=== PATIENT | female | born 1960 | race Caucasian/White ===

== ENCOUNTER 2021-10-31 08:03 | Day surgery (SDC) | payer OTHER ==
[2013-07-08 16:34] VITALS: BP 118/63
[2021-10-31] MEDS ORDERED: Sodium Chloride 0.9% 10 ML FLUSH Syringe IJ ONE (08:04)
[2021-10-31] MEDS ORDERED: Depo-Medrol 40 MG/ML IM ONE (08:04)
[2021-10-31] MEDS ORDERED: DIPRIVAN 200 MG/20 ML IV ONE (09:35)
[2021-10-31] MEDS ORDERED: Lactated Ringers 1,000 ML IV ONE (10:14)
--- NOTE | 2021-10-31 11:49 | XRAY ---
Indication: Right L4-S1 transforaminal GOLD. Intraoperative fluoroscopy was provided for 42 seconds. 4 digital spot image submitted for interpretation demonstrates posterior needle tips projecting over the expected right L4 and L5 nerve roots. Small amount of contrast injected for needle tip placement. Correlate with intraoperative findings/report.
--- NOTE | 2021-10-31 12:38 | XRAY ---
42 seconds of fluoroscopy was used in surgery for a right L4-S1 transforaminal GOLD.
== END 2021-10-31 10:00 | disposition home or self-care (01) ==
LOC: SDC-PAIN 08:03
PROVIDERS: ATTEND Psychiatry & Neurology Pain Medicine
DX: M54.16 Radiculopathy, lumbar region (principal); E11.9 Type 2 diabetes mellitus without complications; I10 Essential (primary) hypertension; Z79.899 Other long term (current) drug therapy
CPT/HCPCS: 64483; 64484; 72100; 77003; 82947; J1030; J2704; Q9966

== ENCOUNTER 2022-11-27 14:19 | Emergency (ER) | payer OTHER ==
[2022-11-27] MEDS ORDERED: Sodium Chloride 0.9% 1000 ML 1,000 ML IV STA (14:43)
[2022-11-27 15:00] LABS: Absolute Neutrophil Ct (ANC) 4.18 x10^3/uL (1.4-6.9); Basophil (Absolute #) 0.06 x10^3/uL (0-0.4); Eosinophil (Absolute #) 0.12 x10^3/uL (0-0.5); Hematocrit 30.6 % (35-47); Hemoglobin 9.4 g/dL (12.0-16.0); IMMATURE GRAN # 0.01 x10^3u/L (0.00-0.03); IMMATURE GRAN % 0.2 % (0.00-0.4); Lymphocytes % 19.8 % (24.0-44.0); Mean Cell Volume 82.7 fL (78-100); Mean Corpuscular Hemoglobin 25.4 pg (26-32); Mean Corpuscular Hgb Concent. 30.7 g/dL (32-36); Mean Platelet Volume 11.7 fL (7.5-11.0); Monocyte (Absolute #) 0.49 x10^3/uL (0.0-1.3); Monocytes % 8.1 % (0.0-12.0); Neutrophil % 68.9 % (36.0-66.0); Platelet Count 194 x10^3/uL (150-450); Red Cell Distribution Width 16.1 % (11.5-14.0); White Blood Count 6.1 x10^3/uL (4.0-10.5)
[2022-11-27] MEDS ORDERED: Sodium Chloride 0.9% 1000 ML 1,000 ML ONE (15:15)
--- NOTE | 2022-11-27 15:18 | XRAY ---
Indication: High blood sugar. Comparison: None PA/lateral chest inflated and clear with a few incidental tiny calcified granulomas. Heart not enlarged with tortuous descending aorta. Bony thorax intact with osteopenia and mild degenerative changes. Impression: Nonacute chest with chronic features.
[2022-11-27 15:29] LABS: ALBUMIN 3.9 g/dL (3.5-5.0); ALKALINE PHOSPHATASE 157 U/L (38-126); ANION GAP 12.4 MEQ/L (5-15); BLOOD UREA NITROGEN 14 mg/dL (7-17); CHLORIDE 111 mmol/L (98-107); Calcium 9.5 mg/dL (8.4-10.2); Carbon Dioxide 20 mmol/L (22-30); Creatinine 1 0.56 mg/dL (0.52-1.04); EST GLOMERULAR FILTRATION RATE > 60.0 ML/MIN; Glucose 94 mg/dL (74-106); Potassium 3.1 mmol/L (3.5-5.1); SGOT/AST 20 U/L (14-36); SGPT/ALT 17 U/L (0-35); SODIUM 140 mmol/L (137-145); Total Protein 6.8 g/dL (6.3-8.2)
--- NOTE | 2022-11-27 15:47 | ERPHSYRPT ---
- History of Present Illness Time Seen by Provider: 11/27/22 14:24 Source: patient Exam Limitations: no limitations Patient Subjective Stated Complaint: Pt reports "around noon I got a headache and a little blurry vision so I checked my sugar and it was 478. I haven't eaten anything to cause it to go up and usually my sugar is low. When I checked my sugar around 1:30 is was 210. My sugar is never this high and I don't feel good." Triage Nursing Assessment: Pt alert and oriented x3. No apparent respiratory distress. Ambulated to ED cot without difficulty. Skin w/p/d. Blood sugar on glucometer is 90. Physician History: Patient is here for fluctuating blood sugars. Patient was asymptomatic and checked her blood sugar at work. States it was high. Then low. Patient states her blood blood sugar went from 400-70 to 200-4 100-200. Therefore it was quite the range. States that she checked it on her home meter. Patient is not diabetic. She has no falls or other trauma. No fever, chills. States that maybe she felt slightly "off, dizzy". However no chest pain, shortness of breath. 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 Timing/Duration: today Severity: mild Modifying Factors: Improves With: other Associated Symptoms: denies symptoms Allergies/Adverse Reactions: No Known Drug Allergies Allergy (Verified 11/27/22 14:27) Home Medications: Furosemide 40 mg [Lasix 40 MG] 40 mg PO DAILY 07/08/13 [History] Isosorbide Mononitrate [Imdur] 60 mg PO DAILY 07/08/13 [History] Lisinopril 5 mg [Zestril 5 MG] 5 mg PO DAILY 07/08/13 [History] Omeprazole 20 MG [Prilosec 20 mg] 20 mg PO DAILY 07/08/13 [History] Potassium Chloride Tab* [Klor Con 10 MEQ] 10 meq PO DAILY 07/08/13 [History] Ropinirole HCl [Requip] 1 mg PO TID 07/08/13 [History] Albuterol 8 gm Mdi Hfa [Ventolin Hfa MDI] 2 puff IH Q4H 01/01/17 [History] Aripiprazole 10 mg [Abilify 10 MG] 10 mg PO DAILY 01/01/17 [History] Calcium Carbonate [Calcium] 1,200 mg PO DAILY 01/01/17 [History] Cholecalciferol (Vitamin D3) [Vitamin D3] 10,000 unit PO DAILY 01/01/17 [History] Citalopram Hydrobromide [Celexa] 40 mg PO DAILY 01/01/17 [History] Cyanocobalamin (Vitamin B-12) [Vitamin B-12] 1,000 mcg PO .MONTHLY 01/01/17 [History] Cyclobenzaprine HCl 10 mg [Cyclobenzaprine 10 MG] 10 mg PO Q8HPRN PRN 01/01/17 [History] Docusate Sodium 100 mg [Colace 100 MG] 100 mg PO BID 01/01/17 [History] Gabapentin [Neurontin] 300 mg PO TID 01/01/17 [History] Hydrocodone/APAP 10/325 mg [[place] 10/325 MG Tablet] 1 tab PO Q4H PRN PRN 01/01/17 [History] Levothyroxine Sodium 50 Mcg [Synthroid 50 Mcg] 50 mcg PO DAILY 01/01/17 [H istory] Levothyroxine Sodium [Synthroid] 200 mcg PO DAILY 01/01/17 [History] Multivit with Iron,Minerals [Flintstones Complete] 3 each PO TID 01/01/17 [History] SUMAtriptan succinate [Imitrex] 100 mg PO .PRN 01/01/17 [History] Topiramate 50 mg PO DAILY 01/01/17 [History] Topiramate 100 mg [Topamax 100 MG] 100 mg PO HS 01/01/17 [History] Liraglutide [Victoza 2-Omar] 1.8 mg SQ DAILY 11/27/22 [History] Hx Tetanus, Diphtheria Vaccination/Date Given: Yes (2014) Hx Influenza Vaccination/Date Given: Yes (2021) Hx Pneumococcal Vaccination/Date Given: Yes Travel Risk - International Travel Have you traveled outside of the country in past 3 weeks: No - Coronavirus Screening Are you exhibiting any of the following symptoms?: No Close contact with a COVID-19 positive Pt in past 14-21 Days: No - Vaccine Status Have you recieved a Covid-19 vaccination: Yes [employer]: Moderna - Vaccination Dates Date of 2cond Vaccination (if applicable): n/a - Review of Systems Constitutional: No Fever, No Chills Eyes: No Symptoms Ears, Nose, & Throat: No Symptoms Respiratory: No Cough, No Dyspnea Cardiac: No Chest Pain, No Edema, No Syncope Abdominal/Gastrointestinal: No Abdominal Pain, No Nausea, No Vomiting, No Diarrhea Genitourinary Symptoms: No Dysuria Musculoskeletal: No Back Pain, No Neck Pain Skin: No Rash Neurological: No Dizziness, No Focal Weakness, No Sensory Changes Psychological: No Symptoms Endocrine: No Symptoms All Other Systems: Reviewed and Negative - Past Medical History Pertinent Past Medical History: Yes Neurological History: Peripheral Neuropathy Cardiac History: Aneurysm Respiratory History: Asthma Endocrine Medical History: Diabetes Type II Musculoskeletal History: Arthritis GI Medical History: GERD Other Medical History: Bariatric surgery 2010 - Past Surgical History Past Surgical History: Yes Gastrointestinal: Other Musculoskeletal: Orthopedic Surgery Other Surgical History: BARIATRIC, FX WRIST, T&A - Social History Smoking Status: Never smoker Exposure to second hand smoke: Yes Drug Use: none Patient Lives Alone: Yes - Nursing Vital Signs Nursing Vital Signs: Initial Vital Signs Temperature 97.9 F 11/27/22 14:28 Pulse Rate 77 11/27/22 14:28 Respiratory Rate 28 H 11/27/22 14:28 Blood Pressure 171/79 11/27/22 14:28 O2 Sat by Pulse Oximetry 100 11/27/22 14:28 Pain Scale Pain Intensity 0 - Physical Exam General Appearance: no apparent distress, alert Eye Exam: PERRL/EOMI, eyes nml inspection Ears, Nose, Throat Exam: normal ENT inspection, TMs normal, pharynx normal, moist mucous membranes Neck Exam: normal inspection, non-tender, supple, full range of motion Respiratory Exam: normal breath sounds, lungs clear, No respiratory distress Cardiovascular Exam: regular rate/rhythm, normal heart sounds, normal peripheral pulses Gastrointestinal/Abdomen Exam: soft, normal bowel sounds, No tenderness, No mass Back Exam: normal inspection, normal range of motion, No CVA tenderness, No vertebral tenderness Extremity Exam: normal inspection, normal range of motion, pelvis stable Neurologic Exam: alert, oriented x 3, cooperative, normal mood/affect, nml cerebellar function, nml station & gait, sensation nml, No motor deficits Skin Exam: normal color, warm, dry, No rash Lymphatic Exam: No adenopathy SpO2: 98 - Course Nursing assessment & vital signs reviewed: Yes EKG Interpreted by Me: Sinus Rhythm Ordered Tests: Active Orders 24 hr Category Date Time Status EKG-ER Only STAT Care 11/27/22 14:43 Active IV Insertion STAT Care 11/27/22 14:43 Active CHEST 2 VIEWS (PA AND LAT) Stat Exams 11/27/22 15:10 Completed CBC W DIFF Stat Lab 11/27/22 14:50 Completed CMP Stat Lab 11/27/22 14:50 Completed POCT GLUCOSE Stat Lab 11/27/22 14:37 Completed TROPONIN Q4H Lab 11/27/22 14:50 Completed TROPONIN Q4H Lab 11/27/22 18:45 Ordered TROPONIN Q4H Lab 11/27/22 22:45 Ordered Medication Summary Discontinued Medications Generic Name Dose Route Start Last Admin Trade Name Freq PRN Reason Stop Dose Admin Sodium Chloride 1,000 mls @ 999 mls/hr 11/27/22 14:43 11/27/22 15:16 Sodium Chloride 0.9% 1000 Ml IV 11/27/22 15:43 999 mls/hr .Q1H1M STA Administration Sodium Chloride Confirm 11/27/22 15:15 Sodium Chloride 0.9% 1000 Ml Administered 11/27/22 15:16 Dose 1,000 mls @ ud .ROUTE .STK-MED ONE Lab/Rad Data: Laboratory Result Diagrams 11/27/22 14:50 11/27/22 14:50 Laboratory Results 11/27/22 11/27/22 11/27/22 Range/Units 14:50 14:50 14:50 WBC (4.0-10.5) x10^3/uL RBC (4.1-5.4) x10^6/uL Hgb (12.0-16.0) g/dL Hct (35-47) % MCV (78-100) fL MCH (26-32) pg MCHC (32-36) g/dL RDW (11.5-14.0) % Plt Count (150-450) x10^3/uL MPV (7.5-11.0) fL Gran % (36.0-66.0) % Immature Gran % (Auto) (0.00-0.4) % Nucleat RBC Rel Count (0.00-0.1) % Eos # (Auto) (0-0.5) x10^3/uL Immature Gran # (Auto) (0.00-0.03) x10^3u/L Absolute Lymphs (auto) (1.0-4.6) x10^3/uL Absolute Monos (auto) (0.0-1.3) x10^3/uL Absolute Nucleated RBC (0.00-0.01) x10^3u/L Lymphocytes % (24.0-44.0) % Monocytes % (0.0-12.0) % Eosinophils % (0.00-5.0) % Basophils % (0.0-0.4) % Absolute Granulocytes (1.4-6.9) x10^3/uL Basophils # (0-0.4) x10^3/uL Sodium 140 (137-145) mmol/L Potassium 3.1 L (3.5-5.1) mmol/L Chloride 111 H (98-107) mmol/L Carbon Dioxide 20 L (22-30) mmol/L Anion Gap 12.4 (5-15) MEQ/L BUN 14 (7-17) mg/dL Creatinine 0.56 (0.52-1.04) mg/dL Estimated GFR > 60.0 ML/MIN Glucose 94 (74-106) mg/dL POC Glucometer (74 to 106) mg/dL Hemoglobin A1c 5.28 (4.5-6.0) % Calcium 9.5 (8.4-10.2) mg/dL Total Bilirubin 0.60 (0.2-1.3) mg/dL AST 20 (14-36) U/L ALT 17 (0-35) U/L Alkaline Phosphatase 157 H (38-126) U/L Troponin I 0.012 (0.000-0.034) ng/mL Serum Total Protein 6.8 (6.3-8.2) g/dL Albumin 3.9 (3.5-5.0) g/dL 11/27/22 11/27/22 Range/Units 14:50 14:37 WBC 6.1 (4.0-10.5) x10^3/uL RBC 3.70 L (4.1-5.4) x10^6/uL Hgb 9.4 L (12.0-16.0) g/dL Hct 30.6 L (35-47) % MCV 82.7 (78-100) fL MCH 25.4 L (26-32) pg MCHC 30.7 L (32-36) g/dL RDW 16.1 H (11.5-14.0) % Plt Count 194 (150-450) x10^3/uL MPV 11.7 H (7.5-11.0) fL Gran % 68.9 H (36.0-66.0) % Immature Gran % (Auto) 0.2 (0.00-0.4) % Nucleat RBC Rel Count 0.0 (0.00-0.1) % Eos # (Auto) 0.12 (0-0.5) x10^3/uL Immature Gran # (Auto) 0.01 (0.00-0.03) x10^3u/L Absolute Lymphs (auto) 1.20 (1.0-4.6) x10^3/uL Absolute Monos (auto) 0.49 (0.0-1.3) x10^3/uL Absolute Nucleated RBC 0.00 (0.00-0.01) x10^3u/L Lymphocytes % 19.8 L (24.0-44.0) % Monocytes % 8.1 (0.0-12.0) % Eosinophils % 2.0 (0.00-5.0) % Basophils % 1.0 (0.0-0.4) % Absolute Granulocytes 4.18 (1.4-6.9) x10^3/uL Basophils # 0.06 (0-0.4) x10^3/uL Sodium (137-145) mmol/L Potassium (3.5-5.1) mmol/L Chloride (98-107) mmol/L Carbon Dioxide (22-30) mmol/L Anion Gap (5-15) MEQ/L BUN (7-17) mg/dL Creatinine (0.52-1.04) mg/dL Estimated GFR ML/MIN Glucose (74-106) mg/dL POC Glucometer 90 (74 to 106) mg/dL Hemoglobin A1c (4.5-6.0) % Calcium (8.4-10.2) mg/dL Total Bilirubin (0.2-1.3) mg/dL AST (14-36) U/L ALT (0-35) U/L Alkaline Phosphatase (38-126) U/L Troponin I (0.000-0.034) ng/mL Serum Total Protein (6.3-8.2) g/dL Albumin (3.5-5.0) g/dL - Progress Progress: unchanged Progress Note: 11/27/22 16:21 differential diagnosis includes: PNA, STEMI, NSTEMI, other infection, musculoskeletal pain, pneumothorax - We/ll obtain basic labs, fluids, EKG, troponin, chest x-ray - I feel comfortable with one time negative troponin given symptoms have improved and started greater then 6 hours ago. - EKG shows no ST changes - my read. See full read below. - O2 saturations consistently greater than 95%. - CXR shows no pneumonia, pneumothorax - my read - no other obvious lab abnormalities Normal hemoglobin A1c. Normal blood sugar here. Therefore much less likely to be is a diabetic. Patient remained asymptomatic. Plan for discharge home. Close follow-up with PCP. Return here for new or changing symptoms. Counseled pt/family regarding: lab results, diagnosis, need for follow-up, rad results - Departure Departure Disposition: Home Clinical Impression: Normal blood sugar Condition: Stable Critical Care Time: No Referrals: RICARDA MIGUEL NP [Primary Care Provider] - Follow up/PCP as directed Instructions: High Blood Sugar, Adult (DC)
[2022-11-27 16:37] VITALS: BP 138/70; PULSE 68; O2SAT 99
== END 2022-11-27 16:43 | disposition home or self-care (01) ==
LOC: ED 14:19
DX: E11.9 Type 2 diabetes mellitus without complications (principal); Z79.891 Long term (current) use of opiate analgesic; Z79.85 Long-term (current) use of injectable non-insulin antidiabetic drugs; Z79.899 Other long term (current) drug therapy
CPT/HCPCS: 36000; 36415; 71046; 80053; 82947; 83036; 84484; 85025; 93005; 96360; 99284

== ENCOUNTER 2023-06-04 08:15 | Emergency (ER) | payer OTHER ==
--- NOTE | 2023-06-04 08:21 | ERPHSYRPT ---
- History of Present Illness Time Seen by Provider: 06/04/23 08:21 Historian: patient Exam Limitations: no limitations Physician History: This is an obese 62-year-old white female patient of nurse practitioner Praveen who saw her pain specialist on 06/03/2023 (Dr. Palma) and had an injection into her knee for chronic knee pain. Patient has had a bariatric surgery (Rou x-en-Y) in 2010. She has had a total abdominal hysterectomy. Her appendix is still in place. She has never had ureteral lithiasis. Today, while at work she had sudden onset of sharp stabbing pain primarily right side of her abdomen. She has never had a pain like this before. The pain doubled her over. Patient denies chest pain. She denies shortness of breath. Patient denies vomiting or diarrhea. Patient has a history of hypertension, gastroesophageal reflux disease, hypothyroidism, migraine headache, diabetes, peripheral neuropathy and arthritis. Timing/Duration: today Activities at Onset: none Quality: sharpness, stabbing Abdominal Pain Onset Location: RLQ, periumbilical Severity of Pain-Max: moderate Severity of Pain-Current: moderate Modifying Factors: Improves With: nothing Associated Symptoms: denies symptoms Previous symptoms: no prior history Allergies/Adverse Reactions: No Known Drug Allergies Allergy (Verified 11/27/22 14:27) Home Medications: Furosemide 40 mg [Lasix 40 MG] 40 mg PO DAILY 07/08/13 [History] Isosorbide Mononitrate [Imdur] 60 mg PO DAILY 07/08/13 [History] Lisinopril 5 mg [Zestril 5 MG] 5 mg PO DAILY 07/08/13 [History] Omeprazole 20 MG [Prilosec 20 mg] 20 mg PO DAILY 07/08/13 [History] Potassium Chloride Tab* [Klor Con 10 MEQ] 10 meq PO DAILY 07/08/13 [History] Ropinirole HCl [Requip] 1 mg PO TID 07/08/13 [History] Albuterol 8 gm Mdi Hfa [Ventolin Hfa MDI] 2 puff IH Q4H 01/01/17 [History] Aripiprazole 10 mg [Abilify 10 MG] 10 mg PO DAILY 01/01/17 [History] Calcium Carbonate [Calcium] 1,200 mg PO DAILY 01/01/17 [History] Cholecalciferol (Vitamin D3) [Vitamin D3] 10,000 unit PO DAILY 01/01/17 [History] Citalopram Hydrobromide [Celexa] 40 mg PO DAILY 01/01/17 [History] Cyanocobalamin (Vitamin B-12) [Vitamin B-12] 1,000 mcg PO .MONTHLY 01/01/17 [History] Cyclobenzaprine HCl 10 mg [Cyclobenzaprine 10 MG] 10 mg PO Q8HPRN PRN 01/01/17 [History] Docusate Sodium 100 mg [Colace 100 MG] 100 mg PO BID 01/01/17 [History] Gabapentin [Neurontin] 300 mg PO TID 01/01/17 [History] Hydrocodone/APAP 10/325 mg [[place] 10/325 MG Tablet] 1 tab PO Q4H PRN PRN 01/01/17 [History] Levothyroxine Sodium 50 Mcg [Synthroid 50 Mcg] 50 mcg PO DAILY 01/01/17 [History] Levothyroxine Sodium [Synthroid] 200 mcg PO DAILY 01/01/17 [History] Multivit with Iron,Minerals [Flintstones Complete] 3 each PO TID 01/01/17 [History] SUMAtriptan succinate [Imitrex] 100 mg PO .PRN 01/01/17 [History] Topiramate 50 mg PO DAILY 01/01/17 [History] Topiramate 100 mg [Topamax 100 MG] 100 mg PO HS 01/01/17 [History] Liraglutide [Victoza 2-Omar] 1.8 mg SQ DAILY 11/27/22 [History] Hx Tetanus, Diphtheria Vaccination/Date Given: Yes (2014) Hx Influenza Vaccination/Date Given: Yes (2021) Hx Pneumococcal Vaccination/Date Given: Yes Travel Risk - International Travel Have you traveled outside of the country in past 3 weeks: No - Coronavirus Screening Are you exhibiting any of the following symptoms?: No Close contact with a COVID-19 positive Pt in past 14-21 Days: No - Vaccine Status Have you recieved a Covid-19 vaccination: Yes 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: 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 - Vaccination Dates Date of 2cond Vaccination (if applicable): n/a - Review of Systems Constitutional: No Symptoms Eyes: No Symptoms Ears, Nose, & Throat: No Symptoms Respiratory: No Symptoms Cardiac: No Symptoms Abdominal/Gastrointestinal: Abdominal Pain Genitourinary Symptoms: No Symptoms Musculoskeletal: No Symptoms Skin: No Symptoms Neurological: No Symptoms Psychological: No Symptoms Endocrine: No Symptoms Hematologic/Lymphatic: No Symptoms Immunological/Allergic: No Symptoms All Other Systems: Reviewed and Negative - Past Medical History Pertinent Past Medical History: Yes Neurological History: Peripheral Neuropathy Cardiac History: Aneurysm Respiratory History: Asthma Endocrine Medical History: Diabetes Type II Musculoskeletal History: Arthritis GI Medical History: GERD Other Medical History: Bariatric surgery 2010 - Past Surgical History Past Surgical History: Yes Gastrointestinal: Other Musculoskeletal: Orthopedic Surgery Other Surgical History: BARIATRIC, FX WRIST, T&A - Social History Smoking Status: Never smoker Exposure to second hand smoke: Yes Drug Use: none Patient Lives Alone: Yes - Nursing Vital Signs Nursing Vital Signs: Initial Vital Signs Temperature 98.8 F 06/04/23 08:27 Pulse Rate 60 06/04/23 08:27 Respiratory Rate 24 06/04/23 08:27 Blood Pressure 222/96 06/04/23 08:27 O2 Sat by Pulse Oximetry 99 06/04/23 08:27 Pain Scale Pain Intensity 6 - Physical Exam General Appearance: mild distress, alert, anxiety, obese Eye Exam: PERRL/EOMI, eyes nml inspection Ears, Nose, Throat Exam: normal ENT inspection, moist mucous membranes Neck Exam: normal inspection, non-tender, supple, full range of motion Respiratory Exam: normal breath sounds, lungs clear, airway intact, No chest tenderness, No respiratory distress Cardiovascular Exam: regular rate/rhythm, normal heart sounds, normal peripheral pulses Gastrointestinal/Abdomen Exam: soft, normal bowel sounds, tenderness (Perium bilical and right lower quadrant), guarding (To palpation right lower quadrant and periumbilical region), No pulsatile mass Pelvic Exam: not done Rectal Exam: not done Back Exam: normal inspection, normal range of motion, No CVA tenderness, No vertebral tenderness Extremity Exam: normal inspection, normal range of motion, pelvis stable Neurologic Exam: alert, oriented x 3, cooperative, orthodontic lab technician II-XII nml as tested, normal mood/affect, nml cerebellar function, nml station & gait, sensation nml Skin Exam: normal color, warm, dry Lymphatic Exam: No adenopathy SpO2 Interpretation: normal O2 Delivery: Room Air - Course Nursing assessment & vital signs reviewed: Yes Ordered Tests: Active Orders 24 hr Category Date Time Status IV Insertion STAT Care 06/04/23 08:43 Active Telemetry q4h Care 06/04/23 09:46 Active ABDOMEN AND PELVIS W/0 CONTRAS [CT] Stat Exams 06/04/23 08:44 Completed AMYLASE Stat Lab 06/04/23 08:38 Completed BLOOD CULTURE Stat Lab 06/04/23 10:00 Received CBC W DIFF Stat Lab 06/04/23 08:38 Completed CMP Stat Lab 06/04/23 08:38 Completed CULTURE,URINE Stat Lab 06/04/23 08:23 Received LIPASE Stat Lab 06/04/23 08:38 Completed UA W/RFX UR CULTURE Stat Lab 06/04/23 08:23 Completed Medication Summary Generic Name Dose Route Start Last Admin Trade Name Freq PRN Reason Stop Dose Admin Potassium Chloride 20 meq in 100 mls @ 50 mls/hr 06/04/23 09:46 Potassium Chloride 20 Meq In Water 100ml IV 06/04/23 11:45 STAT ONE Discontinued Medications Generic Name Dose Route Start Last Admin Trade Name Freq PRN Reason Stop Dose Admin Hydromorphone HCl 1 mg 06/04/23 08:43 06/04/23 08:54 Hydromorphone 1 Mg/1ml Inj IV 06/04/23 08:44 1 mg STAT ONE Administration Hydromorphone HCl Confirm 06/04/23 08:52 Hydromorphone 1 Mg/1ml Inj Administered 06/04/23 08:53 Dose 1 mg .ROUTE .STK-MED ONE Sodium Chloride 1,000 mls @ 999 mls/hr 06/04/23 08:43 06/04/23 08:55 Sodium Chloride 0.9% 1000 Ml IV 06/04/23 09:43 999 mls/hr .Q1H1M STA Administration Sodium Chloride Confirm 06/04/23 08:52 Sodium Chloride 0.9% 1000 Ml Administered 06/04/23 08:53 Dose 1,000 mls @ ud .ROUTE .STK-MED ONE Ceftriaxone Sodium/Dextrose 1 g in 50 mls @ 100 mls/hr 06/04/23 09:26 06/04/23 09:48 Rocephin 1 Gm-D5w 50 Ml Bag IV 06/04/23 09:55 100 ml/hr STAT STA 100 mls/hr Administration Ceftriaxone Sodium/Dextrose Confirm 06/04/23 09:37 Rocephin 1 Gm-D5w 50 Ml Bag Administered 06/04/23 09:38 Dose 1 g in 50 mls @ ud IV .STK-MED ONE Ondansetron HCl 4 mg 06/04/23 08:43 06/04/23 08:54 Ondansetron Hcl 4 Mg/2 Ml Vial IV 06/04/23 08:44 4 mg STAT ONE Administration Ondansetron HCl Confirm 06/04/23 08:51 Ondansetron Hcl 4 Mg/2 Ml Vial Administered 06/04/23 08:52 Dose 4 mg .ROUTE .STK-MED ONE Lab/Rad Data: Laboratory Result Diagrams 06/04/23 08:38 06/04/23 08:38 Laboratory Results 06/04/23 06/04/23 06/04/23 Range/Units 08:38 08:38 08:23 WBC 5.7 (4.0-10.5) x10^3/uL RBC 3.69 L (4.1-5.4) x10^6/uL Hgb 9.4 L (12.0-16.0) g/dL Hct 31.5 L (35-47) % MCV 85.4 (78-100) fL MCH 25.5 L (26-32) pg MCHC 29.8 L (32-36) g/dL RDW 16.5 H (11.5-14.0) % Plt Count 199 (150-450) x10^3/uL MPV 11.7 H (7.5-11.0) fL Gran % 74.8 H (36.0-66.0) % Immature Gran % (Auto) 0.2 (0.00-0.4) % Nucleat RBC Rel Count 0.0 (0.00-0.1) % Eos # (Auto) 0.06 (0-0.5) x10^3/uL Immature Gran # (Auto) 0.01 (0.00-0.03) x10^3u/L Absolute Lymphs (auto) 0.98 L (1.0-4.6) x10^3/uL Absolute Monos (auto) 0.34 (0.0-1.3) x10^3/uL Absolute Nucleated RBC 0.00 (0.00-0.01) x10^3u/L Lymphocytes % 17.1 L (24.0-44.0) % Monocytes % 5.9 (0.0-12.0) % Eosinophils % 1.0 (0.00-5.0) % Basophils % 1.0 (0.0-0.4) % Absolute Granulocytes 4.27 (1.4-6.9) x10^3/uL Basophils # 0.06 (0-0.4) x10^3/uL Sodium 137 (137-145) mmol/L Potassium 3.2 L (3.5-5.1) mmol/L Chloride 106 (98-107) mmol/L Carbon Dioxide 24 (22-30) mmol/L Anion Gap 10.1 (5-15) MEQ/L BUN 10 (7-17) mg/dL Creatinine 0.38 L (0.52-1.04) mg/dL Estimated GFR > 60.0 ML/MIN Glucose 107 H (74-106) mg/dL Calcium 9.2 (8.4-10.2) mg/dL Total Bilirubin 0.80 (0.2-1.3) mg/dL AST 27 (14-36) U/L ALT 25 (0-35) U/L Alkaline Phosphatase 130 H (38-126) U/L Serum Total Protein 6.6 (6.3-8.2) g/dL Albumin 4.0 (3.5-5.0) g/dL Amylase 66 (30-110) U/L Lipase 64 (23-300) U/L Urine Color Yellow (Yellow) Urine Appearance Turbid A (Clear) Urine pH 6.0 (4.6-8.0) Ur Specific [place] 1.025 (1.005-1.030) Urine Protein 30 (Negative) Urine Glucose (UA) Negative (Negative) mg/dL Urine Ketones Negative (Negative) Urine Blood Negative (Negative) Urine Nitrite Negative (Negative) Urine Bilirubin Negative (Negative) Urine Urobilinogen 1.0 A (0.2) mg/dL Ur Leukocyte Esterase Trace A (Negative) U Hyaline Cast (Auto) 3-5 A (0-2) /LPF Urine Microscopic RBC 3-5 (0-5) /HPF Urine Microscopic WBC 11-20 A (0-5) /HPF Ur Epithelial Cells Many A (None Seen) /HPF Urine Bacteria Moderate A (None Seen) /HPF Urine Yeast (Budding) (None Seen) /HPF Urine Culture Reflexed YES (NO) - Progress Progress: improved, pain not gone completely, re-examined Progress Note: 06/04/23 09:41 This patient's medical issue is 1 of high complexity. The level of complexity and the work-up performed is based on review of the patient's past medical history, review of the patient's medication list, review of the patient's drug allergy list, history of present illness and physical examination findings. The work-up in this patient includes placement of intravenous line, infusion of 1 L normal saline solution intravenously, infusion of Zofran 4 mg intravenously, infusion of 1 mg Dilaudid intravenously, CBC, CMP, amylase, lipase level, urinalysis and CAT scan of the abdomen pelvis without contrast. I reviewed the results of the work-up. Patient definitely has a urinary tract infection. CT scan of the abdomen pelvis without contrast was performed and interpreted by the radiologist. The radiologist, Dr. Altamirano, called me to inform me that the patient has a new enteroenteric intussusception in the left mid abdomen. The small bowel just proximal to the site is distended up to 5 cm. At this time there is no free air or evidence for ischemia. I reexamined the patient, her pain is improved but still present on palpation. We will contact Dr. Uziel Stover, the bariatric surgeon out of [facility] who the patient recalls operating on her in 2010 for bariatric surgery. 06/04/23 09:45 06/04/23 10:[address] Uziel Stover, the patient's bariatric surgeon out of [facility]. I reviewed the patient history, physical findings and work-up results with him. He agrees that the patient should be transferred to their facility. We will be waiting for callback when the bed becomes available. Counseled pt/family regarding: lab results, diagnosis, need for follow-up, rad results Medical Desision Making - Independent Historian Additional History obtained from: Relative/friend - Discussion of managment Care discussed with:: specialist (Patient's bariatric surgeon Dr. Uizel Stover [facility]) Reviewed:: Test results, Need for additional workup Will see patient: in hospital - Diagnostic Testing Diagnostic test were ordered, analyzed, and reviewed by me: Yes Radiological Interpretation: Reviewed by me, Teleradiologist Report - Risk of complications The pt has a high risk of morbidity or mortality based on: Decision regarding hospitilization or escalation of hosp level of care - Departure Departure Disposition: Transfer Clinical Impression: UTI (urinary tract infection), Intussusception intestine Condition: Stable Critical Care Time: No Referrals: RICARDA MIGUEL NP [Primary Care Provider] - Follow up/PCP as directed
[2023-06-04 08:31] VITALS: TEMP 98.8
[2023-06-04] MEDS ORDERED: Sodium Chloride 0.9% 1000 ML 1,000 ML IV STA (08:43)
[2023-06-04] MEDS ORDERED: Hydromorphone 1 mg/ml Injection IV ONE (08:43)
[2023-06-04] MEDS ORDERED: Zofran 4 MG/2 ML VIAL IV ONE (08:43)
[2023-06-04] MEDS ORDERED: Zofran 4 MG/2 ML VIAL ONE (08:51)
[2023-06-04] MEDS ORDERED: Hydromorphone 1 mg/ml Injection ONE (08:52)
[2023-06-04] MEDS ORDERED: Sodium Chloride 0.9% 1000 ML 1,000 ML ONE ×2 (08:52→10:38)
[2023-06-04 09:05] LABS: Absolute Neutrophil Ct (ANC) 4.27 x10^3/uL (1.4-6.9); Basophil (Absolute #) 0.06 x10^3/uL (0-0.4); Eosinophil (Absolute #) 0.06 x10^3/uL (0-0.5); Hematocrit 31.5 % (35-47); Hemoglobin 9.4 g/dL (12.0-16.0); IMMATURE GRAN # 0.01 x10^3u/L (0.00-0.03); IMMATURE GRAN % 0.2 % (0.00-0.4); Lymphocyte (Absolute #) 0.98 x10^3/uL (1.0-4.6); Lymphocytes % 17.1 % (24.0-44.0); Mean Cell Volume 85.4 fL (78-100); Mean Corpuscular Hemoglobin 25.5 pg (26-32); Mean Corpuscular Hgb Concent. 29.8 g/dL (32-36); Mean Platelet Volume 11.7 fL (7.5-11.0); Monocyte (Absolute #) 0.34 x10^3/uL (0.0-1.3); Monocytes % 5.9 % (0.0-12.0); Neutrophil % 74.8 % (36.0-66.0); Platelet Count 199 x10^3/uL (150-450); Red Blood Count 3.69 x10^6/uL (4.1-5.4); Red Cell Distribution Width 16.5 % (11.5-14.0); White Blood Count 5.7 x10^3/uL (4.0-10.5)
[2023-06-04 09:11] LABS: ALKALINE PHOSPHATASE 130 U/L (38-126); AMYLASE 66 U/L (30-110); ANION GAP 10.1 MEQ/L (5-15); BLOOD UREA NITROGEN 10 mg/dL (7-17); CHLORIDE 106 mmol/L (98-107); Calcium 9.2 mg/dL (8.4-10.2); Carbon Dioxide 24 mmol/L (22-30); Creatinine 1 0.38 mg/dL (0.52-1.04); EST GLOMERULAR FILTRATION RATE > 60.0 ML/MIN; Glucose 107 mg/dL (74-106); LIPASE 64 U/L (23-300); Potassium 3.2 mmol/L (3.5-5.1); SGOT/AST 27 U/L (14-36); SGPT/ALT 25 U/L (0-35); SODIUM 137 mmol/L (137-145); Total Protein 6.6 g/dL (6.3-8.2)
[2023-06-04 09:17] LABS: ADD URINE CULTURE? YES (NO); Appearance Turbid (Clear); Bacteria Moderate /HPF (None Seen); Bilirubin Negative (Negative); Blood Negative (Negative); Epithelial Cells Many /HPF (None Seen); Glucose, Urine Negative (Negative); Ketones Negative (Negative); Leukocyte Esterase Trace (Negative); Nitrite Negative (Negative); Protein,Urine Dip 30 (Negative); Specific Gravity 1.025 (1.005-1.030)
[2023-06-04] MEDS ORDERED: ROCEPHIN 1 Gm-D5w 50 ml Bag** 1 G/50 ML IVPB IV STA (09:26)
--- NOTE | 2023-06-04 09:35 | XRAY ---
Indication: Right lower quadrant pain and diarrhea. Multiple contiguous axial images obtained through the abdomen and pelvis without contrast. Comparison: November 29, 2019 Lung bases demonstrates minimal dependent atelectasis. No infiltrate or effusion. Heart remains borderline enlarged. Again previous gastric bypass surgery. Left mid abdomen demonstrates new enteroenteric intussusception. Small bowel just proximal to this is distended up to 5 cm. No free fluid/air or evidence for ischemia. Normal distal colonic bowel gas. No free fluid/air. Stable small bilateral renal cysts. Remaining liver, gallbladder, pancreas, spleen, adrenal glands, kidneys, ureters, and bladder are unremarkable for noncontrast exam. Again mild aortoiliac calcifications without AAA. Osseous structures intact with now mild osteopenia, minimal/mild multilevel thoracolumbar degenerative spondylosis, and 2-3 mm L4 anterolisthesis. Impression: 1. New enteroenteric intussusception as detailed. 2. Chronic findings including borderline cardiomegaly, gastric bypass surgery, arteriosclerotic disease, and chronic bony findings. Comment: Telephone report was given to ordering clinician Dr. Stephen at 0929 hrs. on June 04, 2023.
[2023-06-04] MEDS ORDERED: ROCEPHIN 1 Gm-D5w 50 ml Bag** 1 G/50 ML IVPB IV ONE (09:37)
[2023-06-04] MEDS ORDERED: POTASSIUM CHLORIDE 20 mEq IN WATER 100ML 20 MEQ/100 ML BAG IV ONE (09:46)
[2023-06-04 10:37] VITALS: BP 174/70; PULSE 60; RESP 20; O2SAT 98
[2023-06-04] MEDS ORDERED: POTASSIUM CHLORIDE 20 mEq IN WATER 100ML 100 ML IV ONE (10:39)
[2023-06-04] MEDS ORDERED: Sodium Chloride 0.9% 1000 ML 1,000 ML IV SCH (10:45)
== END 2023-06-04 12:10 | disposition short-term general hospital (02) ==
LOC: ED 08:15
DX: K56.1 Intussusception (principal); N39.0 Urinary tract infection, site not specified; R10.31 Right lower quadrant pain; I10 Essential (primary) hypertension; E11.42 Type 2 diabetes mellitus with diabetic polyneuropathy; Z79.85 Long-term (current) use of injectable non-insulin antidiabetic drugs; Z79.899 Other long term (current) drug therapy; Z98.84 Bariatric surgery status
CPT/HCPCS: 36000; 36415; 74176; 80053; 81001; 82150; 83690; 85025; 87040; 87086; 96360; 96365; 96367; 96374; 96375; 99285; J0696; J1170; J2405; J3480